=== PATIENT | male | born 2000 | race Hispanic/Latino ===

== ENCOUNTER 2021-01-01 08:44 | Emergency (ER) | payer SELFPAY ==
[2021-01-01] MEDS ORDERED: predniSONE 20 MG TAB ONE (09:34)
[2021-01-01] MEDS ORDERED: diphenhydrAMINE 25 MG CAP ONE (09:34)
[2021-01-01] MEDS ORDERED: EPINEPHrine 1 MG/ML AMP ONE ×2 (10:45→11:20)
== END 2021-01-01 12:24 | disposition home or self-care (01) ==
LOC: MADERS 08:44
DX: L50.0 Allergic urticaria (principal); F17.290 Nicotine dependence, other tobacco product, uncomplicated
CPT/HCPCS: 96372; 99282; J0171; J7512; Q0163